=== PATIENT | male | born 1995 | race Two or more races ===

== ENCOUNTER 2017-10-29 11:19 | Emergency (ER) | payer SELFPAY ==
[~2017-10-29] VITALS: Ht 180.3 cm; Wt 76.7 kg
[2017-10-29 11:33] VITALS: BP 138/54
[2017-10-29] MEDS ORDERED: Ketorolac 60mg Inj IM ONE (12:15)
[2017-10-29] MEDS ORDERED: Cyclobenzaprine 10mg Tab ORAL ONE (12:15)
--- NOTE | 2017-10-29 13:22 | Diagnostic Imaging Report ---
Indication: Pain Technique: XRAY L [facility] Comparison: None Findings: There are 5 nonrib-bearing lumbar-type vertebral bodies, assuming 12 paired ribs. Lumbar lordosis is maintained. Vertebral body heights are maintained. There is mild narrowing of the L5-S1 disc space. Questionable fracture of the left L2 transverse process versus artifact from overlying colonic stool. No radiopaque foreign body. Impression: Questionable fracture of the left transverse process of L2 vertebral body versus artifact from overlying colonic stool. Correlate with site of point tenderness. Vertebral body heights maintained, no evidence of compression fracture.
--- NOTE | 2017-10-29 14:14 | Emergency Room Report ---
History of Present Illness General Chief Complaint: Back Injury Source: Patient Present Illness HPI Patient states that yesterday he was in the gym and he was doing a lift. He states when he brought the weight up he felt a pop in his back and has had severe pain in his back ever since. He states that the pain is worse with ambulation. He states that the pain is gotten worse and he is unable to straighten up. He denies weakness. He denies tingling or numbness. He denies loss of bowel or bladder control. He denies any other injuries or complaints. Allergies: Coded Allergies: No Known Allergies (Unverified , 10/29/17) Patient History Past Medical History: none Social History: Denies: smoking, alcohol use, drug use Reviewed Nursing Documentation: PMH: Agreed; PSxH: Agreed Nursing Documentation-PMH Past Medical History: No Stated History Review of Systems All Other Systems: negative except mentioned in HPI Physical Exam Vital Signs Date Time Temp Pulse Resp B/P (MAP) Pulse Ox O2 Delivery O2 Flow Rate FiO2 10/29/17 11:25 98.4 79 18 141/58 99 Room Air 98.4 Sp02 EP Interpretation: reviewed, normal General Appearance: no apparent distress, alert, GCS 15, non-toxic Head: normocephalic, atraumatic Eyes: bilateral eye normal inspection, bilateral eye PERRL ENT: hearing grossly normal, normal pharynx, no angioedema, normal voice Neck: full range of motion, supple/symm/no masses Respiratory: chest non-tender, lungs clear, normal breath sounds, speaking full sentences Cardiovascular #1: regular rate, rhythm, no edema Cardiovascular #2: 2+ carotid (R), 2+ carotid (L), 2+ radial (R), 2+ radial (L) , 2+ femoral (R), 2+ femoral (L), 2+ dorsalis pedis (R), 2+ dorsalis pedis (L) Gastrointestinal: normal bowel sounds, non tender, soft, non-distended, no guarding, no rebound Rectal: deferred Musculoskeletal: normal range of motion, other - TTP Lumbar spine throughout midline Neurologic: alert, oriented x3, responsive, motor strength/tone normal, sensory intact, speech normal Psychiatric: judgement/insight normal, memory normal, mood/affect normal, no suicidal/homicidal ideation Skin: normal color, no rash, warm/dry, well hydrated Medical Decision Making Diagnostic Impression: Primary Impression: Low back pain ER Course This patient was doing Olympic style lifting and felt pain and a pop in his back. He has had severe pain and difficulty ambulating ever since. I was concerned about disc herniation versus stress fracture. He underwent a lumbar spine x-ray and there was some questionable area of the transverse process I could be a fracture. The patient is tender in this location and therefore I felt that I should do a CT of the lumbar spine to further assess for an occult fracture. The patient is pending CT at the time of this dictation. There will be an addendum to this note if the patient is found to have a fracture. Other X-Ray Diagnostic Results Other X-Ray Diagnostic Results : X-Ray ordered: L-spine # of Views/Limited Vs Complete: Complete Indication: Pain EP Interpretation: No Interpretation: other - Questionable fracture of the left transverse process of L2 vertebral body Impression: Other Electronically Signed by: Darya CT/MRI/US Diagnostic Results CT/MRI/US Diagnostic Results : Imaging Test Ordered: CT L-spine Impression Pending at the time of this dictation. See EMR Last Vital Signs Date Time Temp Pulse Resp B/P (MAP) Pulse Ox O2 Delivery O2 Flow Rate FiO2 10/29/17 12:42 98.4 10/29/17 11:33 76 16 138/54 100 Room Air Disposition: HOME, SELF-CARE Condition: Improved Referrals: NOT CHOSEN [facility]/,REFERRING (PCP) Patient Instructions: Back Injury Prevention Trinh Cornejo DO Oct 29, 2017 14:14
[2017-10-29] MEDS ORDERED: CYCLOBENZAPRINE10 MG ORAL (14:20)
[2017-10-29] MEDS ORDERED: IBUPROFEN800 MG ORAL (14:20)
[2017-10-29 15:32] VITALS: BP 129/62
--- NOTE | 2017-10-29 16:05 | Diagnostic Imaging Report ---
Indication: Trauma Technique: CT lumbar spine was performed utilizing automated exposure control without intravenous contrast material. Axial, sagittal and coronal images were generated. CT dose: Total DLP 442.4 mGycm; CTDI vol 12.33 mGy Comparison: None Findings: There are 5 nonrib-bearing lumbar-type vertebral bodies, assuming 12 paired ribs. Lumbar lordosis is maintained. There is no evidence of spondylolisthesis. There is no abnormal lumbar curvature on coronal views. There is no evidence of acute fracture. Vertebral body heights and disc spaces are maintained. There is no compression fracture. There is no significant bony central canal stenosis or evidence of significant bony foraminal narrowing. Please note that the central canal/cord, disks and nerve roots are better evaluated on MRI, which can be obtained for further evaluation as clinically indicated. Imaged portions of the abdominal aorta, bilateral kidneys and bowel and bladder are grossly unremarkable. IMPRESSION: No evidence of acute fracture or traumatic malalignment. Questioned abnormality involving the left L2 transverse process noted on concurrent radiograph artifactual and related to overlying colonic stool. The CT scanner at [facility] is accredited by the [employer] and the scans are performed using protocols designed to limit radiation exposure to as low as reasonably achievable to attain images of sufficient resolution adequate for diagnostic evaluation.
[2017-10-29 17:40] VITALS: BP 129/62
== END 2017-10-29 17:52 | disposition home or self-care (01) ==
LOC: EMR 12:33
DX: S39.92XA Unspecified injury of lower back, initial encounter (principal); Y93.B3 Activity, free weights; Y92.39 Other specified sports and athletic area as the place of occurrence of the external cause
CPT/HCPCS: 72020; 72131; 96372; 99284